=== PATIENT | male | born 1935 | race Caucasian/White ===

== ENCOUNTER 2018-05-26 08:17 | Emergency (ER) | payer MEDICARE ==
--- OUTSIDE RECORDS SUMMARY | 2018-05-26 08:22 | XMS REPORT | Continuity of Care Document ---
:1935 External Reference #:[id number] Author Name Ilda Wayne Care Team Providers Name Role Phone Jane Ha MD Primary Care Physician Unavailable Payers Date Identification Numbers Payment Provider Subscriber Effective: 2016 Policy Number: [id number] [employer] Chuck Gao PayID: [id number] [address] [place] [address] Expires: 2016 Policy Number: [id number] Medicare Chuck Gao PayID: [id number] [address] [place] [address] Expires: 2016 Policy Number: [id number] [facility] Chuck Gao Group Number: [id number] [address] PayID: [id number] [place] [address] Advance Directives Description No Information Available Problems Date Description Provider Status Onset: 02/24/2016 Aortic valve stenosis DO LELE Treadwell Active Note: c Onset: 02/24/2016 Carotid artery stenosis Barron Segal DO FACC Active Family History Date Family Member(s) Observation Comments General Tuberculosis General Diabetes Father due to Unknown Causes () Mother due to TB () Social History Type Date Description Comments Sex Unknown Marital Status Lives With Occupation Retired Occupation Professor History of Political ideas at [employer] Tobacco Use Start: Unknown Never Smoked Cigarettes ETOH Use Drinks 4 Alcoholic Beverages Per Week Tobacco Use Start: Unknown Patient is a former occasional pipe End: Unknown smoker smoker Recreational Drug Use Denies Drug Use Smoking Status Reviewed: 05/20/18 Patient is a former occasional pipe smoker smoker Exercise Type/Frequency Exercises regularly Allergies, Adverse Reactions, Alerts Description No Known Drug Allergies Medications Medication Date Status Form Strength Qnty SIG Indications Ordering Provider Ambien Active Tablets 5mg one by Unknown 0 mouth at bedtime as needed for sleep Fluticasone Active Suspension 50mcg/Act 2 sprays Unknown Propionate 0 each nostril daily as needed Lipitor Active Tablets 80mg 1/2 by Unknown 0 mouth every night at bedtime Vitamin B-12 Active Tablets 1000mcg 2 by Unknown 0 mouth every day Aspirin Low Active Tablets 81mg 1 by Unknown Dose 0 mouth every day Latanoprost Active Solution 0.005% daily Unknown [address] 20mg 30cap 1 by Celestino Sethi 0 s mouth Taco, every day (not taking) Vitamin D3 Active Tablets 2,000 1 by Unknown Complete 0 mouth every day Clopidogrel Active Tablets 75mg 90tab 1 by Barron Barnes Bisulfate 0 s mouth Philipp, every day DO FACC Combigan Active Solution 0.2-0.5% instill 1 Unknown 0 drop into both eyes twice a day Brimonidine Active Solution 0.2% instill 1 Unknown Tartrate 0 drop into both eyes twice a day Augmentin Hx Tablets 875-125mg 14tab one K61.0 Francisco Javier SKassi 9 - s tablet Tom Unknown twice a , MD day for 7 days Gabapentin Hx Capsules 100mg 1 by Unknown 0 - mouth two to three 8 times daily Trusopt Hx Solution 2% 1 gtts OU Unknown 0 - daily as Unknown directed Immunizations Description No Information Available Vital Signs Date Vital Result Comment 05/20/2018 2:42pm Heart Rate 76 /min BP Systolic 144 mmHg BP Diastolic 74 mmHg Respiratory Rate 16 /min Body Temperature 98.5 F 04/15/2018 1:58pm Height 65.5 inches 5'5.50" Weight 133.00 lb Heart Rate 66 /min BP Systolic Sitting 140 mmHg BP Diastolic Sitting 68 mmHg Respiratory Rate 18 /min Body Temperature 98.7 F BMI (Body Mass Index) 21.8 kg/m2 02/02/2018 2:07pm Weight 134.00 lb Heart Rate 75 /min BP Systolic Sitting 125 mmHg lue Reg Cuff BP Diastolic Sitting 60 mmHg lue Reg Cuff BP Systolic Standing 130 mmHg Lue reg cuff BP Diastolic Standing 65 mmHg Lue reg cuff Respiratory Rate 18 /min 07/27/2017 11:01am Height 65.5 inches 5'5.50" Weight 134.00 lb Heart Rate 66 /min BP Systolic Sitting 125 mmHg lue reg cuff BP Diastolic Sitting 62 mmHg lue reg cuff BP Systolic Standing 122 mmHg lue reg cuff BP Diastolic Standing 60 mmHg lue reg cuff Respiratory Rate 16 /min BMI (Body Mass Index) 22.0 kg/m2 Ejection Fraction 70-75% 02/13/2016 echo 01/13/2017 2:23pm Height 65.5 inches 5'5.50" Weight 137.00 lb Heart Rate 72 /min BP Systolic Sitting 112 mmHg Rue reg cuff BP Diastolic Sitting 70 mmHg Rue reg cuff BP Systolic Standing 112 mmHg Rue BP Diastolic Standing 70 mmHg Rue Respiratory Rate 16 /min BMI (Body Mass Index) 22.4 kg/m2 Ejection Fraction 70-75% 02/13/16 08/26/2016 1:45pm Height 65.5 inches 5'5.50" Weight 132.00 lb Heart Rate 68 /min BP Systolic Sitting 112 mmHg Rue reg cuff BP Diastolic Sitting 70 mmHg Rue reg cuff BP Systolic Standing 92 mmHg Rue BP Diastolic Standing 62 mmHg Rue Respiratory Rate 16 /min BMI (Body Mass Index) 21.6 kg/m2 Ejection Fraction 70-75% 02/13/16 02/24/2016 1:28pm Height 65.5 inches 5'5.50" Weight 133.00 lb no shoes Heart Rate 72 /min BP Systolic Sitting 120 mmHg Rue reg cuff BP Diastolic Sitting 60 mmHg Rue reg cuff BP Systolic Standing 128 mmHg Rue reg cuff BP Diastolic Standing 68 mmHg Rue reg cuff Respiratory Rate 15 /min BMI (Body Mass Index) 21.8 kg/m2 Ejection Fraction 70-75% 02/13/2016 09/23/2015 2:03pm Height 65.5 inches 5'5.50" Weight 136.00 lb w/o shoes Heart Rate 58 /min BP Systolic Sitting 150 mmHg Rue, reg cuff BP Diastolic Sitting 90 mmHg Rue, reg cuff BP Systolic Standing 146 mmHg Rue BP Diastolic Standing 90 mmHg Rue Respiratory Rate 16 /min BMI (Body Mass Index) 22.3 kg/m2 Ejection Fraction 55-60% as of 01/10/14 echo 09/04/2015 3:16pm Height 65.5 inches 5'5.50" Weight 136.00 lb w/o shoes Heart Rate 70 /min reg BP Systolic 120 mmHg Rue, reg cuff BP Diastolic 74 mmHg Rue, reg cuff BP Systolic Sitting 114 mmHg Lue, reg cuff BP Diastolic Sitting 70 mmHg Lue, reg cuff BP Systolic Standing 108 mmHg Lue BP Diastolic Standing 70 mmHg Lue Respiratory Rate 16 /min BMI (Body Mass Index) 22.3 kg/m2 Ejection Fraction 55-60% as of 01/10/14 echo Results Test Date Facility Test Result H/L Range Note Laboratory test 04/15/2018 [facility] Surgical SEE RESULT [address] [place] [address] [phone] Laboratory test 09/23/2015 [facility] Troponin-I 0.00 ng/mL N <0.03 [address] (TnI) [place] [address] [phone] 1 SEE RESULT BELOW Name: CHUCK GAO : [address]: Francisco Javier Santos MD Acct: [id number] Unit: [id number] AGE: 82 Location: [facility] Re04/15/18 SEX: M Status: REG REF SPEC: [id number] DARLENE: 04/15/18 [facility] DR: Francisco Javier Santos MD REQ: [id number] RECD: 04/15/18 STATUS: BHAVANA MISTRY DR: Jane Ha MD _ ORDERED: LEVEL 3 COMMENTS: [id number] FINAL DIAGNOSIS Perirectal tissue, biopsy: -- Dermal tissue with marked eosinophilic inflammation. CLINICAL HISTORY No history given GROSS DESCRIPTION The specimen is received in formalin labeled, Juanis-Rectal Abscess, and consists of a 0.4 x 0.4 by up to 0.2 cm العلي-white irregular soft tissue fragment which is submitted entirely in one cassette. Signed by and Reported on: Viry Cade MD 04/19/18 1252 END OF REPORT DEPARTMENT OF PATHOLOGY, [address] [place] [address] Fransico Leavitt M.D. Director [facility] # [id number] 2 Reference Range and Interpretation: TnI (ng/mL) Interpretation Less Than 0.03 ng/mL Not supportive of diagnosis of [place] 0.03 - 0.50 ng/mL Indeterminate: suggest serial studies if clinically indicated. Greater than 0.5 ng/mL Consistent with diagnosis of [place] Procedures Date Code Description Status 04/15/2018 17920 I & D Abscess Perinanal Superficial Completed 03/31/2018 52284 Pace Maker Eval W/Iterative Adjment Dual Lead Completed 03/31/2018 27107 Pace Maker Eval W/Iterative Adjment Dual Lead Completed 02/02/2018 75266 EKG Tracing & Interpretation Completed 09/08/2017 85441 ECHO Stress Test Incl Perf Contiuous ekg Monitoring W/Phys Completed Superv 07/27/2017 18943 EKG Tracing & Interpretation Completed 10/06/2016 21500 ECHO Stress Test Incl Perf Contiuous ekg Monitoring W/Phys Completed Superv 10/05/2016 01089 Stress Test Supervsn W/Out I/R Completed 10/05/2016 71864 Treadmill Interp/Report Only Completed 10/05/2016 80393 Stress ECHO Interpretation/Report Hospital Completed 08/26/2016 28950 EKG Tracing & Interpretation Completed 02/13/2016 14930 ECHO Transthoracic, Real-Time 2D With Doppler And Color Completed Flow 11/07/2015 44453 Duplex Scan Extracranial Arteries, Unilateral Or Limited Completed Study 09/23/2015 99568 EKG Tracing & Interpretation Completed 09/04/2015 48527 EKG Tracing & Interpretation Completed 08/12/2015 20135 Stress ECHO Interpretation/Report Hospital Completed 08/12/2015 48690 Treadmill Interp/Report Only Completed 08/12/2015 81580 Stress Test Supervsn W/Out I/R Completed 01/10/2014 35831 ECHO Transthoracic, Real-Time 2D With Doppler And Color Completed Flow Encounters Type Date Location Provider Dx Diagnosis Office Visit 04/15/[facility] Francisco Javier Barnes K61.0 Anal abscess 1:45p Of Ana Laura Santos MD Office Visit 02/02/2018 [facility] Barron Segal, 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 DA 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 I35.0 Nonrheumatic Of [facility] Segal, DO aortic (valve) FACC stenosis I65.23 Occlusion and stenosis of bilateral carotid arteries E11.9 Type 2 diabetes mellitus without complications E78.5 Hyperlipidemia, unspecified Office Visit 08/26/2016 2:00p [facility] Barron S. I35.0 Nonrheumatic Of [facility] Segal, DO aortic (valve) FACC stenosis I65.23 Occlusion and stenosis of bilateral carotid arteries E11.9 Type 2 diabetes mellitus without complications E78.5 Hyperlipidemia, unspecified Office Visit 02/24/2016 1:40p [facility] Barron S. I35.0 Nonrheumatic Of [facility] Segal, DO aortic (valve) FACC stenosis I65.23 Occlusion and stenosis of bilateral carotid arteries E11.9 Type 2 diabetes mellitus without complications E78.5 Hyperlipidemia, unspecified Office Visit 09/23/2015 2:20p [facility] Barron Barnes R07.9 Chest pain , Of [facility] Segal, DO unspecified FACC I35.0 Nonrheumatic aortic (valve) stenosis I65.23 Occlusion and stenosis of bilateral carotid arteries E11.9 Type 2 diabetes mellitus without complications E78.5 Hyperlipidemia, unspecified Office Visit 09/04/2015 3:40p [facility] Barron S. I35.0 Nonrheumatic Of [facility] Segal, DO aortic (valve) FACC stenosis I65.23 Occlusion and stenosis of bilateral carotid arteries E78.5 Hyperlipidemia, unspecified E11.9 Type 2 diabetes mellitus without complications Plan of Treatment Future Appointment(s):06/17/2018 1:40 pm - Barron Segal DO FACC at [facility] Of [facility]05/20/2018 - Francisco Javier Santos MDK61.0 Anal abscessFollow up: None needed Call with any recurrence of problems
--- OUTSIDE RECORDS SUMMARY | 2018-05-26 08:22 | XMS REPORT | Continuity of Care Document ---
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 Jane Ha MD Primary Care Physician Unavailable Payers Date Identification Numbers Payment Provider Subscriber Policy Number: [id number] [facility] Priceza Brice Catalan Group Number: [id number] [id number] Group Name: [id number] [place] [address] PayID: [id number] Advance Directives Description No Information Available Problems Date Description Provider Status Onset: 05/12/2018 Acquired deformity of nose Jose Ramon Garcia MD Active Onset: 05/12/2018 Chronic rhinitis Jose Ramon Garcia MD Active Family History Date Family Member(s) Observation Comments General Heart Disease Social History Type Date Description Comments Sex Unknown Occupation Retired Tobacco Use Start: Unknown Never Smoked Cigarettes Tobacco Use Start: Unknown Never Smoked Cigars Tobacco Use Start: Unknown Never Smoked A Pipe Smokeless Tobacco Never Used Smokeless Tobacco ETOH Use Currently occasionally consumes alcohol Allergies, Adverse Reactions, Alerts Description No Known Drug Allergies Medications Medication Date Status Form Strength Qnty SIG Indications Ordering Provider Clopidogrel Active Tablets 75mg 1 tab Segal Bisulfate 000 daily Anya, Barron Combigan Active Solution 0.2-0.5% Arleo, 000 Noel Worthington M.D. Oxycodone-Acet Active Tablets 5-325mg take 2 Unknown aminophen 000 tablets by mouth every 6 hours if needed for pain Brimonidine Active Solution 0.2% instill 1 Unknown Tartrate 000 drop into both eyes twice a day Vitamin D Active Capsules 2000Unit Unknown 000 B12 Fast Active Tablets Unknown Dissolve 000 Dispers Zolpidem Hx Tablets 5mg Becky Ha Tarnarayan 000 - dith 019 Immunizations Description No Information Available Vital Signs Date Vital Result Comment 05/19/2018 11:23am Weight 133.00 lb Weight 60.329 kg Height 66 inches 5'6" Height in cm's 167.6 cm BMI (Body Mass Index) 21.5 kg/m2 05/16/2018 8:59am Weight 133.00 lb Weight 60.329 kg Height 66 inches 5'6" Height in cm's 167.6 cm BMI (Body Mass Index) 21.5 kg/m2 05/12/2018 3:57pm Weight 126.00 lb Weight 57.154 kg Height 66 inches 5'6" Height in cm's 167.6 cm BMI (Body Mass Index) 20.3 kg/m2 Results Description No Information Available Procedures Description No Information Available Encounters Type Date Location Provider Dx Diagnosis Office Visit 05/23/2018 [place] Jose Ramon Garcia M95.0 Acquired deformity 11:00a 04/12/07 MD of nose J31.0 Chronic rhinitis Office Visit 05/19/2018 11:15a [place] Jose Ramon Garcia M95.0 Acquired 04/12/07 deformity of nose J31.0 Chronic rhinitis Office Visit 05/16/2018 9:00a [place] Jose Ramon Garcia M95.0 Acquired 04/12/07 deformity of nose J31.0 Chronic rhinitis Office Visit 05/12/2018 3:45p [place] Jose Ramon Garcia M95.0 Acquired 04/12/07 deformity of nose J31.0 Chronic rhinitis Plan of Treatment Future Appointment(s):05/26/2018 8:30 am - Jose Ramon Garcia MD at [place] - Jose Ramon Garcia MDM95.0 Acquired deformity of noseComments: Continue nasal washing if necessary recheck back for debridement again.J31.0 Chronic rhinitis
--- OUTSIDE RECORDS SUMMARY | 2018-05-26 08:22 | XMS REPORT | Continuity of Care Document ---
:1935 External Reference #:[id number] Author Name Jose Ramon Garcia MD Address [address] [place] [address] Care Team Providers Name Role Phone Jane Ha MD Care Team Information Actuary Unavailable Jane Ha MD Primary Care Physician Unavailable Payers Date Identification Numbers Payment Provider Subscriber Policy Number: [id number] [employer] Brice Catalan Group Number: [id number] [id number] Group Name: [id number] [place] [address] PayID: [id number] Advance Directives Description No Information Available Problems Date Description Provider Status Onset: 05/12/2018 Chronic rhinitis Jose Ramon Garcia MD Active Onset: 05/12/2018 Acquired deformity of nose Jose Ramon Garcia MD Active Family History [...] Available Vital Signs Date Vital Result Comment 05/16/2018 8:59am Weight 133.00 lb Weight 60.329 [...] Date Location Provider Dx Diagnosis Office Visit 05/16/2018 [place] Jose Ramon Garcia M95.0 Acquired deformity 9:00a 04/12/07 of nose J31.0 Chronic rhinitis Office Visit 05/12/2018 3:45p [place] Jose Ramon Garcia M95.0 Acquired 04/12/07 deformity of nose J31.0 Chronic rhinitis Plan of Treatment Future Appointment(s):05/19/2018 11:15 am - Jose Ramon Garcia MD at [place] - Jose Ramon Garcia MDM95.0 Acquired deformity of noseComments: Continue nasal washing if necessary recheck back for debridement again.J31.0 Chronic rhinitis
--- OUTSIDE RECORDS SUMMARY | 2018-05-26 08:23 | XMS REPORT | Continuity of Care Document ---
:1935 External Reference #:[id number] Author Name Jose Ramon Garcia MD Address [address] [place] [address] Care Team Providers Name Role Phone Jane Ha MD Care Team Information Outreach Clinician Unavailable Jane Ha MD Primary Care Physician Unavailable Payers Type Date Identification Numbers Payment Provider Subscriber Policy Number: [id number] [employer] Brice Catalan Group Number: [id number] [facility] [id number] Group Name: [id number] [place] [address] PayID: [id number] Advance Directives Description No Information Available Problems Date Description Provider Status Onset: 05/12/2018 Chronic rhinitis Jose Ramon Garcia MD Active Onset: 05/12/2018 Acquired deformity of nose Jose Ramon Garcia MD Active Family History Date Family Member(s) Problem(s) Comments General Heart Disease Social History Type [...] 75mg 1 tab Segal Bisulfate 000 daily Anya Barron Combigan Active Solution 0.2-0.5% Arleo, 000 Nole Worthington M.D. Oxycodone-Acet Active Tablets 5-325mg take 2 Unknown aminophen 000 tablets by mouth every 6 hours if needed for pain Brimonidine Active Solution 0.2% instill 1 Unknown Tartrate 000 drop into both eyes twice a day Vitamin D 00/00/0 Active Capsules 2000Unit Unknown 000 B12 Fast 0 Active Tablets Unknown Dissolve 000 Dispers Zolpidem Hx Tablets 5mg Becky Ha Tarnarayan 000 - dith 019 Immunizations Description No Information Available Vital Signs Date Vital Result Comment 05/12/2018 3:57pm Weight 126.00 lb Weight 57.154 kg Height 66 inches 5'6" Height in cm's 167.6 cm BMI (Body Mass Index) 20.3 kg/m2 Results Description No Information Available Procedures Description No Information Available Encounters Type Date Location Provider Dx Diagnosis Office Visit 05/12/2018 [place] Jose Ramon Garcia M95.0 Acquired deformity 3:45p 04/12/07 of nose J31.0 Chronic rhinitis Plan of Treatment 05/12/2018 - Jose Ramon Garcia MDM95.0 Acquired deformity of noseJ31.0 Chronic rhinitisComments: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 I suggest cleaning the area more aggressively, recheck back to remove scabbing as necessary.
[2018-05-26 08:41] VITALS: BP 148/80
--- NOTE | 2018-05-26 08:56 | UC ---
Syncope/New Syncope HPI - HPI Summary HPI Summary: 82-year-old male here with a chief complaint of a fall that he does not remember. Patient reports waking up this morning and making coffee. He remembers waking up and floor. He does have a laceration on the back of his head. He is on Plavix. He's had heart surgery in the past. He does have a headache. Denies any chest pain or focal weakness or numbness. Denies any other injury. - History Of Current Complaint Chief Complaint: UCLaceration Stated Complaint: HEAD LAC Time Seen by Provider: 05/26/18 08:43 Pain Intensity: 1 - Allergies/Home Medications Allergies/Adverse Reactions: Allergies Allergy/AdvReac Type Severity Reaction Status Date / Time No Known Allergies Allergy Verified 05/26/18 08:37 Home Medications: Home Medications Clopidogrel TAB* [Plavix TAB*] 75 mg PO DAILY 05/26/18 [History Confirmed ] Cyanocobalamin TAB* [Vitamin B12 TAB*] 1,000 mcg PO DAILY 05/26/18 [History Confirmed 05/26/18] Sertraline* [Zoloft*] 25 mg PO DAILY 05/26/18 [History Confirmed 05/26/18] PMH/Surg Hx/FS Hx/Imm Hx Previously Healthy: Yes Cardiovascular History: Cardiac Disease - Surgical History Surgical History: Yes Surgery Procedure, Year, and Place: hernia repair, aortic valve replacement, pacemaker - Family History Known Family History: Positive: Non-Contributory - Social History Alcohol Use: Daily Alcohol Amount: 1 drink daily Substance Use Type: None Smoking Status (MU): Former Smoker - Immunization History Most Recent Tetanus Shot: April 2018 Review of Systems All Other Systems Reviewed And Are Negative: Yes Constitutional: Positive: Negative Skin: Positive: Other - SEE HPI ENT: Positive: Negative Respiratory: Positive: Negative Cardiovascular: Positive: Negative Gastrointestinal: Positive: Negative Motor: Positive: Negative Neurovascular: Positive: Negative Musculoskeletal: Positive: Negative Neurological: Positive: Headache Psychological: Positive: Other - AMNESIA OF EVENT Is Patient Immunocompromised?: No Physical Exam Triage Information Reviewed: Yes Appearance: Well-Nourished Vital Signs: Initial Vital Signs Temp 97.1 F 05/26/18 08:24 Pulse 77 05/26/18 08:24 Resp 16 05/26/18 08:24 BP 148/80 05/26/18 08:24 Pulse Ox 98 05/26/18 08:24 Vital Signs Reviewed: Yes Eye Exam: Normal Eyes: Positive: Conjunctiva Clear Neck exam: Normal Neck: Positive: Supple, Nontender Respiratory: Positive: Lungs clear, Normal breath sounds, No respiratory distress Cardiovascular: Positive: RRR Musculoskeletal Exam: Normal Musculoskeletal: Positive: Strength Intact, ROM Intact Neurological Exam: Normal Neurological: Positive: Alert, Muscle Tone Normal Psychological Exam: Normal Psychological: Positive: Normal Response To Family, Age Appropriate Behavior Skin: Positive: Other - OCCIPITAL LACERATION COVERED WITH DRESSING. LENGTH UNKNOWN Diagnostics - EKG Cardiac Rate: NL - AT 0829 Cardiac Rhythm: Sinus: Normal - 71BPM Summary of EKG Findings: RBBB AND LAFB, PROLONGER [place] INTERVAL 220 Syncope Course/Dx - Course Course Of Treatment: Because the patient does not remember the episode were not sure if he syncopized or has amnesia after the head injury. With his cardiac history we are sending him to the emergency department for further evaluation and care. - Differential Dx/Diagnosis Provider Diagnosis: Syncope, Head injury, Scalp laceration Discharge - Sign-Out/Discharge Documenting (check all that apply): Patient Departure All imaging exams completed and their final reports reviewed: No Studies - Discharge Plan Condition: Stable Disposition: TRANS HIGHER LVL OF CARE FAC Referrals: Jane Ha MD [Primary Care Provider] - - Billing Disposition and Condition Condition: STABLE Disposition: Trans Higher Lvl of Care Fac
== END 2018-05-26 09:15 | disposition short-term general hospital (02) ==
LOC: UCEAST 08:17
DX: S01.01XA Laceration without foreign body of scalp, initial encounter (principal); R55 Syncope and collapse; Z87.891 Personal history of nicotine dependence; X58.XXXA Exposure to other specified factors, initial encounter; Y92.9 Unspecified place or not applicable
CPT/HCPCS: 99213; G0463

== ENCOUNTER 2018-05-26 09:30 | Emergency (ER) | payer MEDICARE ==
--- NOTE | 2018-05-26 09:43 | ED ---
Head Injury - HPI Summary HPI Summary: An 82 y/o M brought in by ambulance presents to ED with s/p fall with a lac to his posterior head onset approx 2 hours ago. Patient's head is wrapped with gauze at bedside. Pt was bringing his coffee this AM and had a sudden- onset syncopal episode. He was walking up the stairs and was on about the 4th step, when he fell backwards and hit his head. He does not remember falling, and for few minutes afterwards, he was experiencing some generalized confusion ( for example, he was unaware of his doctors appt today.) He was standing up when his found him after the fall. At bedside, he denies neck and back pain ; dizziness; lightheadedness; STEEL. He denies recent illness; n/v. Previously, patient had a mechanical fall while he was in [facility], in the [facility] ED, they packed his nose which caused some necrotized nasal tissue. This has led to him having some breathing difficulty, so he sees Dr. Garcia, ENT, regularly to clean his nasal passages. He was scheduled to see him today at 0830. He takes blood thinners (Plavix) s/p aortic valve replacement. Pt is scheduled for bus travel to [facility] today and to fly in two days. - History Of Current Complaint Chief Complaint: EDHeadInjury Stated Complaint: FELL/HEAD INJURY Time Seen by Provider: 05/26/18 09:40 Hx Obtained From: Patient Mechanism Of Injury: Fall From Height Of: - 4 steps up Onset/Duration: Started Hours Ago, Traumatic - fall, Still Present Onset of Pain: Immediate, Post Accident Severity Currently: Moderate Severity Initially: Moderate Pain Intensity: 5 Pain Scale Used: 0-10 Numeric Location of Head Injury: Occipital Associated Signs And Symptoms: LOC Duration Unknown, Confusion, Other: - pos: lac to occipital head. neg: neck pain, back pain, n/v, dizziness, lightheadedness, STEEL Anticoagulant Therapy: Blood Thinners - Plavix - Allergies/Home Medications Allergies/Adverse Reactions: Allergies Allergy/AdvReac Type Severity Reaction Status Date / Time No Known Allergies Allergy Verified 05/26/18 09:38 PMH/Surg Hx/FS Hx/Imm Hx Previously Healthy: No Endocrine/Hematology History: Denies: Hx Diabetes Cardiovascular History: Reports: Hx Hypertension, Hx Valvular Heart Disease - aortic stenosis Denies: Hx Angina, Hx Coronary Artery Disease, Hx Hypercholesterolemia, Hx Myocardial Infarction Respiratory History: Denies: Hx Asthma, Hx Chronic Obstructive Pulmonary Disease (COPD) - Surgical History Surgery Procedure, Year, and Place: hernia repair, aortic valve replacement, pacemaker Infectious Disease History: No Infectious Disease History: Denies: Traveled Outside the [place] in Last 30 Days - Family History Known Family History: Negative: Cardiac Disease - Social History Occupation: Retired Lives: With Family Alcohol Use: Daily Alcohol Amount: 1 drink daily Hx Substance Use: No Substance Use Type: Reports: None Hx Tobacco Use: Yes Smoking Status (MU): Former Smoker Review of Systems Negative: Fever, Chills Negative: Erythema Negative: Sore Throat Negative: Chest Pain Negative: Shortness Of Breath, Cough Negative: Abdominal Pain, Vomiting, Nausea Negative: dysuria, hematuria Negative: Arthralgia - neg: neck pain, Myalgia - neg: back pain, Edema Positive: Other - pos: lac to posterior head. Negative: Rash Neurological: Other - pos: mild confusion; neg: dizziness, lightheadedness Positive: Syncope - LOC. Negative: Headache All Other Systems Reviewed And Are Negative: Yes Physical Exam - Summary Physical Exam Summary: Constitutional: Well-developed, Well-nourished, Alert, Cooperative Skin: Warm, Dry, Occipital scalp laceration 2 mm. HENT: Normocephalic; No Racoons eyes; No keenan's sign; No abrasion; No contusion; No hemotympanum; No maxilla facial tenderness or instability; Dentition are smooth; No dental trauma; No trismus Eyes: EOM normal, PERRL Neck: Trachea is midline. No stridor; No JVD; No step off; No posterior cervical spine tenderness Cardio: Rhythm regular, rate normal Heart sounds normal; Intact distal pulses; The pedal pulses are 2+ and symmetric. Radial pulses are 2+ and symmetric. Pulmonary/Chest wall: Effort normal; Breath sounds normal; Equal chest rise; No flail segment; No rib tenderness; No sternal tenderness Abd: Soft, Appearance normal. No distension; No tenderness; No palpable pulsatile mass; No Cullens sign; No Turcios-Turners sign Musculoskeletal: Full ROM and no tenderness at hips, ankles, shoulders, elbows and knees; No joint swelling; No vertebral body tenderness; No paraspinal tenderness; No step off or deformity of the spine; Pelvis is stable to lateral compression and rock Neuro: Alert, Oriented x3, Strength 5/5 all extremities. : No blood at urethral meatus Psych: Mood and affect Normal Triage Information Reviewed: Yes Vital Signs On Initial Exam: Initial Vitals Temp Pulse Resp BP Pulse Ox 97.3 F 71 18 142/71 98 05/26/18 09:32 05/26/18 09:32 05/26/18 09:32 05/26/18 09:32 05/26/18 09:32 Vital Signs Reviewed: Yes - Argelia Coma Scale Best Eye Response: 4 - Spontaneous Best Motor Response: 6 - Obeys Commands Best Verbal Response: 5 - Oriented Coma Scale Total: 15 Procedures - Laceration/Wound Repair 1 Location: head - occipital Description: Linear Length, Depth and Shape: 2mm Closure: Zara #__ - 1 Diagnostics - Vital Signs Vital Signs Temp Pulse Resp BP Pulse Ox 05/26/18 09:32 97.3 F 71 18 142/71 98 - Laboratory Result Diagrams: 05/26/18 09:58 05/26/18 09:58 Lab Statement: Any lab studies that have been ordered have been reviewed, and results considered in the medical decision making process. - Radiology CXR Radiology Interpretation Completed By: Radiologist Summary of Radiographic Findings: IMPRESSION: No active cardiopulmonary disease. ED provider has reviewed this report. - CT BRAIN CT Interpretation Completed By: Radiologist Summary of CT Findings: IMPRESSION: No intracranial mass or hemorrhage is noted. Large scalp hematoma. ED provider has reviewed this report. C-SPINE CT Interpretation Completed By: Radiologist Summary of CT Findings: IMPRESSION: OSTEOPENIA. ADVANCED DEGENERATIVE DISC DISEASE AND OSTEOARTHRITIS DESCRIBED ABOVE. NO ACUTE OSSEOUS INJURY TO THE CERVICAL SPINE. ED provider has reviewed these reports. - EKG 0952 Cardiac Rate: NL - 69 bpm EKG Rhythm: Sinus Rhythm Summary of EKG Findings: No STEMI. National Institutes Of Health - NIH Scale Level of Consciousness: Alert/Keenly Responsive Ask Patient the Month and His/Her Age: Both Correct Ask Pt to Open/Close Eyes and Roentgenologist/Release Non-Paretic Hand: Both Correctly Best Gaze (Only Horizontal Eye Movement): Normal Visual Field Testing: No Visual Loss Facial Paresis-Pt to Smile & Close Eyes or Grimace Symmetry: Normal/Symmetrical Motor Function - Right Arm: No Drift-Holds 10 Seconds Motor Function - Left Arm: No Drift-Holds 10 Seconds Motor Function - Right Leg: No Drift-Holds 10 Seconds Motor Function - Left Leg: No Drift-Holds 10 Seconds Limb Ataxia-Must be out of Proportion to Weakness Present: Absent Sensory (Use Pinprick to Test Arms/Legs/Trunk/Face): Normal Best Language (Describe Picture, Name Items): No Aphasia Dysarthria (Read Several Words): Normal Extinction and Inattention: No Abnormality Total Score: 0 Re-Evaluation - Re-Evaluation 1 Re-Evaluation Time: 13:44 Change: Unchanged Comment: Completing lac repair to occipital head, see procedure note. Will interrogate pacemaker to r/o arrythmia due to patient's sudden LOC. 2 Re-Evaluation Time: 14:30 Change: Improved Comment: Bleeding is controlled. Head Injury Course/Dx Course Of Treatment: Pt is an 82 y/o M brought in by ambulance presenting s/p fall with a lac to his posterior head onset approx 2 hours ago. Patient's head is wrapped with gauze at bedside. Pt was walking up the stairs and on about the 4th step, when he had a sudden syncopal episode, fell backwards and hit his head. He does not remember falling, and for few minutes afterwards, he experienced mild confusion. He was standing when his found him after the fall. At bedside, he denies neck and back pain; dizziness; lightheadedness; STEEL. He denies recent illness; n/v. He takes blood thinners (Plavix) s/p aortic valve replacement. Patient's 2mm occipital scalp laceration was repaired with 1 staple. Bleeding is controlled, pressure applied and dressing placed. UA results are unremarkable. Evaluated pacemaker and no arrythmias detected. Will discharge patient home. - Diagnoses Provider Diagnoses: Concussion, LOC (loss of consciousness), Scalp laceration - Critical Care Time Critical Care Time: 30-74 min - 35 mins CC time Discharge - Sign-Out/Discharge Documenting (check all that apply): Patient Departure - D/C Patient Received Moderate/Deep Sedation with Procedure: No - Discharge Plan Condition: Stable Disposition: HOME Patient Education Materials: Concussion (ED) Referrals: Jane Ha MD [Primary Care Provider] - 2 Days Additional Instructions: Return to the emergency department for changing or worsening symptoms. Follow up with your primary care provider in 2-3 days. - Attestation Statements Document Initiated by Scribe: Yes Documenting Scribe: Ady Watson Provider For Whom Scribe is Documenting (Include Credential): Dr. Alexander Lilly MD Scribe Attestation: Ady Smalls, scribed for Dr. Alexander Lilly MD on 05/26/18 at 1520.
[2018-05-26 10:07] LABS: ABS Basophils 0 10^3/ul (0-0.2); ABS Eosinophils 0 10^3/ul (0-0.6); ABS Lymphocytes 1.5 10^3/ul (1.0-4.8); ABS Neutrophils 3.3 10^3/ul (1.5-7.7); ABS Nucleated RBC 0 10^3/ul; Eosinophil % 0.3 %; Hematocrit 35 % (42-52); Hemoglobin 11.7 g/dl (14.0-18.0); Lymphocyte % 24.8 %; Mean Corpuscular HGB Conc 33 g/dl (31-36); Mean Corpuscular Hemoglobin 32 pg (27-31); Mean Corpuscular Volume 95 fL (80-94); Mean Platelet Volume 7.8 fL (7.4-10.4); Nucleated Red Blood Cells % 0; Platelet Count 164 10^3/ul (150-450); Red Blood Count 3.71 10^6/ul (4.00-5.40); Red Cell Distribution Width 16 % (10.5-15); White Blood Count 5.9 10^3/ul (3.5-10.8)
[2018-05-26 10:28] LABS: Albumin 3.7 g/dL (3.2-5.2); Albumin/Globulin Ratio 1.4 (1-3); BUN/Creatinine Ratio 26.3 (8-20); Calcium 8.9 mg/dL (8.6-10.3); EGFR African American 119.4 (>60); EGFR Non-African American 98.7 (>60); Globulin 2.6 g/dL (2-4); Magnesium 2.1 mg/dL (1.9-2.7); Potassium 4.1 mmol/L (3.5-5.0); Total Bilirubin 0.6 mg/dL (0.2-1.0); Total Protein 6.3 g/dL (6.4-8.9)
[2018-05-26 10:30] LABS: Troponin I 0.01 ng/mL (<0.04)
[2018-05-26 10:56] LABS: TSH (Thyroid Stimulating Horm) 1.48 mcIU/mL (0.34-5.60)
[2018-05-26 14:07] LABS: Urine Appearance Cloudy; Urine Bilirubin Negative (Negative); Urine Blood Negative (Negative); Urine Color Yellow; Urine Glucose Negative (Negative); Urine Ketones Negative (Negative); Urine Nitrite Negative (Negative); Urine Protein Negative (Negative); Urine Specific Gravity 1.018 (1.010-1.030); Urine Urobilinogen Negative (Negative)
[2018-05-26 15:31] VITALS: BP 115/62
== END 2018-05-26 15:30 | disposition home or self-care (01) ==
LOC: ED 09:30
DX: S06.0X1A Concussion with loss of consciousness of 30 minutes or less, initial encounter (principal); S01.01XA Laceration without foreign body of scalp, initial encounter; W10.9XXA Fall (on) (from) unspecified stairs and steps, initial encounter; Y92.9 Unspecified place or not applicable; Z79.02 Long term (current) use of antithrombotics/antiplatelets; Z95.2 Presence of prosthetic heart valve; I10 Essential (primary) hypertension; I25.10 Atherosclerotic heart disease of native coronary artery without angina pectoris; E78.00 Pure hypercholesterolemia, unspecified; I25.2 Old myocardial infarction; Z95.0 Presence of cardiac pacemaker; Z87.891 Personal history of nicotine dependence
CPT/HCPCS: 12001; 36415; 70450; 71045; 72125; 80053; 81003; 83605; 83735; 84443; 84484; 85025; 93005; 99283